=== PATIENT | female | born 1975 | race Caucasian/White ===

== ENCOUNTER 2022-01-29 17:29 | Emergency (ER) | payer OTHER, BC | END 2022-01-29 18:30 | disposition home or self-care (01) | LOC: FB.ED 17:29 | DX: S93.401A Sprain of unspecified ligament of right ankle, initial encounter (principal); S83.92XA Sprain of unspecified site of left knee, initial encounter; X50.1XXA Overexertion from prolonged static or awkward postures, initial encounter | CPT/HCPCS: 73562-LT; 73610-RT; 99283 ==